=== PATIENT | male | born 1960 | race Caucasian/White ===

== ENCOUNTER 2023-04-27 00:26 | Emergency (ER) | payer SELFPAY ==
[~2023-04-27] VITALS: Ht 175.3 cm; Wt 87.0 kg
[2023-04-27 00:40] VITALS: BP 124/79; O2SAT 97
[2023-04-27] MEDS ORDERED: ACYC200C31 MT (00:50)
[2023-04-27] MEDS ORDERED: P50 MT (00:50)
[2023-04-27] MEDS ORDERED: NAPHADR LEFTEYE (00:50)
[2023-04-27] MEDS ORDERED: HYPR15DR23 EACHEYE (00:52)
[2023-04-27 01:30] VITALS: PULSE 97; RESP 18; TEMP 97.8
== END 2023-04-27 01:44 | disposition home or self-care (01) ==
LOC: ER 00:26
DX: G51.0 Bell's palsy (principal); E11.9 Type 2 diabetes mellitus without complications
CPT/HCPCS: 99283